=== PATIENT | male | born 1940 | race Caucasian/White ===

== ENCOUNTER 2023-01-29 07:19 | Day surgery (SDC) | payer MEDICARE, SELFPAY ==
[2023-01-29 07:23] VITALS: BP 122/87; PULSE 65; RESP 18; TEMP 36.7; O2SAT 97
[2023-01-29] MEDS: Tropicam./Phenyleph. (1/2.5%) 5 ML BTL OD ×3 (07:41→07:49)
--- NOTE | 2023-01-29 08:26 | W.ANESPRE ---
General Info Date of Service Date Performed: 01/29/23 Height: 5 ft 9 in Weight: 81.7 kg Body Mass Index (BMI): 26.6 Surgical Procedure: Operation Date: 01/29/23 09:40 Proposed Procedure Side Surgeon p Cataract Extraction with IOL Implant Right Bony Franz MD Meds Allergies and Home Medications Allergies Allergy/AdvReac Type Severity Reaction Status Date / Time No Known Allergies Allergy Unverified 01/29/23 07:32 Home Medication Medication Instructions Recorded calcium carbonate 600 mg-vitamin 1 tab PO DAILY 01/28/23 D3 5 mcg (200 unit) tablet multivitamin 1 tab PO DAILY 01/28/23 vit C 250 mg-vit E 90 mg-zinc 40 1 cap PO DAILY 01/28/23 mg-copper 1 [id number]-[id number] capsule (PreserVision AREDS-2) Current Visit Medications: Current Medications Generic Name Dose Route Start Last Admin Trade Name Freq PRN Reason Stop Dose Admin Acetaminophen 1,000 mg 01/29/23 06:00 Acetaminophen 500 Mg Tab PO Q4H PRN PRN Miscellaneous Medication 0 ml 01/29/23 06:00 01/29/23 07:49 Tropicam./Phenyleph. 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 cataract, right eye H25.11 Excessive cerumen in ear canal 12/16/15 H61.20 Sensorineural hearing loss, asymmetrical 01/22/14 H90.5 Sensorineural hearing loss 10/08/15 H90.5 Sensorineural hearing loss, bilateral 12/16/15 H90.3 Abnormal auditory perception H93.299 Medical History Medical History Cataract Tobacco Smoking/Tobacco Use Status: Current-Occasional Tobacco Type: cigarettes Alcohol Alcohol Intake: never Substance Use Substance use type: does not use Vital Signs and Lab Results Vital Signs Most Recent Vital Signs in EMR: Most Recent Vital Signs Temp Pulse Resp BP Pulse Ox 36.7 C 65 18 122/87 97 01/29/23 07:23 01/29/23 07:23 01/29/23 07:23 01/29/23 07:23 01/29/23 07:23 Lab Results Blood Type / Crossmatch: No Data to Display Complete Blood Count: No Data to Display Complete Metabolic Panel: No Data to Display Liver Function Panel: No Data to Display Coagulation Panel: No Data to Display Cardiac Panel: No Data to Display Arterial Blood Gas: No Data to Display Venous Blood Gas: No Data to Display Pancreas Panel: No Data to Display Thyroid Panel: No Data to Display Infectious Disease: No Data to Display Blood Cultures: No Data to Display Toxicology Panel: No Data to Display Anesthesia Assessment and Plan Anesthesia History Personal History: No History of Anesthesia Complications Family History: No Family History of Anesthesia Complications Exercise Tolerance Exercise Tolerance: Metabolic Equivalents>4 Pertinent Negatives Pertinent Negatives: No Symptoms of GERD, No Major Cardiovascular Symptoms or Complaints and No Major Pulmonary Symptoms or Complaints Cardiac & Pulmonary Exam Cardiac Exam: Normal S1/S2 Heart Sounds Pulmonary Exam: Clear Bilateral Breath Sounds Implantable Cardiac Device Does patient have a Pacemaker or an ICD?: No Airway Exam Known Difficult Airway: No Mallampati Class: 2 Mouth Opening: Normal (> 3cm) Thyromental Distance: Greater than 3 cm Neck Range of Motion: Full ROM Neck Circumference: Normal Teeth Condition: Removable Dentures/Plates Upper ASA Classification ASA Score: ASA 2 Emergency Case?: No NPO Status NPO Status: NPO Clears >2 hours, Solids >8 hours Anesthesia Plan Resuscitation Status: Full Code Anesthesia Technique: MAC Anesthesia Airway Planned: Natural Airway Monitors Used: Standard Monitors
[2023-01-29 08:28] VITALS: BMI 26.6
[2023-01-29] MEDS: Tetracaine 0.5% 4 ML BTL OD (09:32)
[2023-01-29] MEDS: Balanced Salt Soln.-PLUS 500 ML BAG (09:33)
[2023-01-29] MEDS: Duovisc Viscoelastic System EACH 1 EACH (09:33)
[2023-01-29] MEDS: Lidocaine 1% Pres-Free 5 ML VIAL (09:33)
[2023-01-29] MEDS: Phenylephrine/Lidocaine (15/10) MG/ML 1 ML VIAL (09:34)
[2023-01-29] MEDS: Povidone-Iodine Ophth 30 ML BTL (09:37)
[2023-01-29 09:45] VITALS: BP 110/66; PULSE 53; RESP 17; TEMP 36.5; O2SAT 99
--- NOTE | 2023-01-29 09:46 | W.PM.DSUDISC ---
Date of service: 01/29/23 Time of Service: 09:46 Discharge Plan Disposition Patient Disposition: Home Discharge Details Attending Provider: Bony Franz Primary Care Provider: Jerod Nina Home Meds and New Rx's Prescriptions: No Action multivitamin Tablet 1 tab PO DAILY calcium carbonate-vitamin D3 [Calcium + D] 600 mg-5 mcg (200 unit) Tablet 1 tab PO DAILY PreserVision AREDS-2 250-90-40-1 mg Capsule 1 cap PO DAILY Discharge Instructions Stand Alone Forms: Post-op Topical Cataract, Raj Squires (DSU) Discharge Orders Discharge Orders: Discharge Order (Routine); Ordered 01/29/23 Ordered By: Bony Franz DS: Diagnosis Discharge Diagnosis (1) Cortical cataract of right eye: Status: Resolved (2) Nuclear age-related cataract, right eye: Status: Resolved
--- NOTE | 2023-01-29 09:46 | W.PM.OP ---
Date of service: 01/29/23 Time of Service: 09:46 Operative Note Operative Note DATE OF PROCEDURE: 01/29/23 PRE-OP DIAGNOSIS: Nuclear/cortical cataract, right eye POST-OP DIAGNOSIS: same PROCEDURE: Cataract extraction using phacoemulsification with intraocular lens implant, right eye SURGEON: Bony Franz ANESTHESIA TYPE: Local By Surgeon and MAC Refer to Anesthesia Record ESTIMATED BLOOD LOSS: 0 PATHOLOGY: none sent COMPLICATIONS: None Patient was transported to: same day Patient's condition: stable Implants: Pacheco [employer] [id number] Indications: Progressive decreased vision due to cataract, right eye Procedure Description: CATARACT SURGERY OPERATIVE REPORT PREOPERATIVE DIAGNOSIS: Nuclear/cortical cataract, right eye POSTOPERATIVE DIAGNOSIS: Same OPERATION: Cataract extraction using phacoemulsification with posterior chamber intraocular lens implant, right eye. IOL: IOL [employer] Logger/Model: Pacheco [place] [id number] IOL Power: + 19.0 diopters IOL Serial Number: [id number] Optic Diameter: 6.0mm Haptic/Overall Diameter: 13.0mm PHACO INFO: Pacheco[employer]eg[employer]urion Vision System with OZil and Active Fluidics Cumulative Dispersed Energy (CDE): 12.74 seconds SURGEON: Bony Franz MD, AURY ANESTHESIA: Monitored Anesthesia Care (MAC), with local sub-tenon's anesthetic infiltration COMPLICATIONS: None SPECIMENS: None INDICATIONS FOR PROCEDURE: The patient is an 82-year-old male with history of diminished visual acuity in his right eye secondary to the development of significant nuclear/cortical cataract in the right eye. The option of cataract surgery was offered to the patient and he wished to proceed. PROCEDURE: The correct surgical eye was identified and marked as the right eye and the pupil was dilated in the preoperative area using mydriatics and cycloplegics. The dilated pupil size was 6.0 mm. Oral sedation was administered in the form of one half of an Imprimis MKO Melt (midazolam 3mg/ketamine 25mg/ondansetron 2mg). The patient was brought to the operating room where cardiopulmonary monitoring was instituted and surgical time-out was performed, confirming the correct operative eye and IOL power. Topical anesthesia was administered and ophthalmic povidone-iodine 5% was instilled into the conjunctival fornices. Lidocaine gel was applied to the cornea and the jaja-ocular area was prepped with Betadine 10% solution and draped in the usual sterile fashion for intraocular surgery, including an aperture drape. A Tegaderm transparent film dressing was cut in half and used to cover the lashes and lid margins. Care was taken to sequester the lashes and lid margins under the Tegaderm dressing. A lid speculum was placed between the lids of the operative eye and the [employer] operating microscope was maneuvered into position. Gibran scissors were then used to make a conjunctival buttonhole approximately 6mm posterior to the limbus in the inferonasal quadrant. Blunt dissection was carried out to expose bare sclera, and a blunt-tipped sub-tenon?s anesthesia cannula was introduced and passed posteriorly along the globe where non-preserved plain lidocaine was injected into posterior sub-Tenon?s space. A sideport knife was used to make a paracentesis port inferiortemporally. Intraocular phenylephrine/lidocaine was injected into the anterior chamber. The anterior chamber was then filled with viscoelastic. A keratome knife was used to construct a two--plane near-clear corneal tunnel extending 2.0mm into clear cornea in the superiortemporal position.. A flap was raised on the anterior capsule and capsulorhexis forceps were used to complete a continuous curvilinear capsulorhexis of 5.0 mm. Balanced salt solution was then used to perform cortical cleaving hydrodissection and nuclear hydrodelineation until the lens could be freely rotated within the capsular bag. The lens nucleus was then disassembled and removed within the capsular bag and iris plane using phacoemulsification. Residual cortical material was removed using the I/A handpiece. The posterior capsule was carefully polished to remove as much residual lens epithelial cells as safely possible. The capsular bag was then inflated and the anterior chamber deepened with viscoelastic. The lens implant described above was inserted into the capsular bag using the Pacheco Autonome Injector. A Kuglen hook was used to dial the IOL into position. Residual viscoelastic was then removed first from posterior to the IOL, then from the anterior chamber using the I/A handpiece. The lens implant was noted to center nicely within the capsular bag. The incisions were stromally hydrated, and the anterior chamber was reformed using BSS. Then 0.5cc of moxifloxacin 1.0mg/ml were injected into the capsular bag and anterior chamber. The incisions were checked with a Weck spear and found to be secure. Several drops of ophthalmic povidone-iodine 5% were then applied to the eye followed by two drops of Imprimis combination prednisolone/moxifloxacin/nepafenac solution. The drapes were removed and a clear plastic protective eye shield was placed over the eye. The patient was then returned to Same Day Surgery in stable condition.
--- NOTE | 2023-01-29 10:16 | W.ANESPOSTOP ---
Postoperative Evaluation Date, Time and Location Date Performed: 01/29/23 Time Performed: 09:53 Patient Location: Day Surgery Unit Vital Signs Most Recent Imported Vital Signs: Most Recent Vital Signs Temp Pulse Resp BP Pulse Ox 36.5 C 53 L 17 110/66 99 01/29/23 09:45 01/29/23 09:45 01/29/23 09:45 01/29/23 09:45 01/29/23 09:45 Pain Score Most Recent Pain Score: Most Recent Pain Score Pain Level 0 01/29/23 09:45 Assessment Mental Status: Awake (Alert & Oriented to Patient Baseline) Airway and Respiratory Function: Patent airway with normal (patient baseline) respiratory exam Cardiovascular Function: Hemodynamically Stable Hydration Status: Adequately Hydrated Nausea & Vomiting: No Nausea or Vomiting Pain: Pt. Denies Any Pain Peripheral Nerve Block: Patient did not receive a nerve block
[2023-01-29 10:20] VITALS: BP 116/65; PULSE 61; RESP 17; TEMP 36.4; O2SAT 100
== END 2023-01-29 10:30 | disposition home or self-care (01) ==
PROVIDERS: PCP Internal Medicine; Visit Provider Ophthalmology
PROC: (CPT 66984; principal; 2023-01-29 09:30)
DX: H25.11 Age-related nuclear cataract, right eye (principal)
CPT/HCPCS: 66984; V2632

== ENCOUNTER 2023-02-05 06:15 | Day surgery (SDC) | payer MEDICARE, SELFPAY ==
[2023-02-05 06:28] VITALS: BP 112/70; PULSE 57; RESP 16; TEMP 36.5; O2SAT 99
[2023-02-05] MEDS: Tropicam./Phenyleph. (1/2.5%) 5 ML BTL OS ×3 (06:38→06:48)
[2023-02-05 07:03] VITALS: BMI 26.9
--- NOTE | 2023-02-05 07:03 | W.ANESPRE ---
General Info Date of Service Date Performed: 02/05/23 Height: 5 ft 9 in Weight: 82.7 kg Body Mass Index (BMI): 26.9 Surgical Procedure: Operation Date: 02/05/23 07:40 Proposed Procedure Side Surgeon p Cataract Extraction with IOL Implant Left Bony Franz MD Meds Allergies and Home Medications Allergies Allergy/AdvReac Type Severity Reaction Status Date / Time No Known Allergies Allergy Verified 02/05/23 06:27 Home Medication Medication Instructions Recorded calcium carbonate 600 mg-vitamin 1 tab PO DAILY 01/28/23 D3 5 mcg (200 unit) tablet multivitamin 1 tab PO DAILY 01/28/23 vit C 250 mg-vit E 90 mg-zinc 40 1 cap PO DAILY 01/28/23 mg-copper 1 [id number] capsule (PreserVision AREDS-2) Current Visit Medications: Current Medications Generic Name Dose Route Start Last Admin Trade Name Freq PRN Reason Stop Dose Admin Acetaminophen 1,000 mg 02/05/23 06:00 Acetaminophen 500 Mg Tab PO Q4H PRN PRN Miscellaneous Medication 0 ml 02/05/23 06:00 02/05/23 06:48 Tropicam./Phenyleph. (1/2.5%) 5 Ml Btl OS 1 drp DIRECTED OBI Administration Miscellaneous Medication 0 ml 02/05/23 06:00 Prednisolone 1%, Moxifloxacin 0.5%, Nepafenac 0.1% 5ml Btl OS DIRECTED OBI Tetracaine HCl 0 ml 02/05/23 06:00 Tetracaine 0.5% 4 Ml Btl OS DIRECTED OBI PFSH Active Problems Active Problems: Problem Status Onset Code Cortical cataract of right eye H26.9 Nuclear age-related cataract, right eye H25.11 Excessive cerumen in ear canal 12/16/15 H61.20 Sensorineural hearing loss, asymmetrical 01/22/14 H90.5 Sensorineural hearing loss 10/08/15 H90.5 Sensorineural hearing loss, bilateral 12/16/15 H90.3 Abnormal auditory perception H93.299 Medical History Medical History Cataract Tobacco Smoking/Tobacco Use Status: Current-Occasional Tobacco Type: cigarettes Alcohol Alcohol Intake: never Substance Use Substance use type: does not use Vital Signs and Lab Results Vital Signs Most Recent Vital Signs in EMR: Most Recent Vital Signs Temp Pulse Resp BP Pulse Ox 36.5 C 57 L 16 112/70 99 02/05/23 06:28 02/05/23 06:28 02/05/23 06:28 02/05/23 06:28 02/05/23 06:28 Lab Results Blood Type / Crossmatch: No Data to Display Complete Blood Count: No Data to Display Complete Metabolic Panel: No Data to Display Liver Function Panel: No Data to Display Coagulation Panel: No Data to Display Cardiac Panel: No Data to Display Arterial Blood Gas: No Data to Display Venous Blood Gas: No Data to Display Pancreas Panel: No Data to Display Thyroid Panel: No Data to Display Infectious Disease: No Data to Display Blood Cultures: No Data to Display Toxicology Panel: No Data to Display Anesthesia Assessment and Plan Anesthesia History Personal History: No History of Anesthesia Complications Family History: No Family History of Anesthesia Complications Exercise Tolerance Exercise Tolerance: Metabolic Equivalents>4 Cardiac & Pulmonary Exam Cardiac Exam: Normal S1/S2 Heart Sounds Pulmonary Exam: Clear Bilateral Breath Sounds Implantable Cardiac Device Does patient have a Pacemaker or an ICD?: No Airway Exam Known Difficult Airway: No Mallampati Class: 2 Mouth Opening: Normal (> 3cm) Thyromental Distance: Greater than 3 cm Neck Range of Motion: Full ROM Neck Circumference: Normal Teeth Condition: Removable Dentures/Plates Upper ASA Classification ASA Score: ASA 2 Emergency Case?: No NPO Status NPO Status: NPO Clears >2 hours, Solids >8 hours Anesthesia Plan Resuscitation Status: Full Code Anesthesia Technique: MAC Anesthesia Airway Planned: Natural Airway Monitors Used: Standard Monitors
[2023-02-05] MEDS: Balanced Salt Soln.-PLUS 500 ML BAG (07:38)
[2023-02-05] MEDS: Lidocaine 1% Pres-Free 5 ML VIAL (07:38)
[2023-02-05] MEDS: Phenylephrine/Lidocaine (15/10) MG/ML 1 ML VIAL (07:39)
[2023-02-05] MEDS: Povidone-Iodine Ophth 30 ML BTL (07:39)
[2023-02-05] MEDS: Duovisc Viscoelastic System EACH 1 EACH (07:40)
[2023-02-05] MEDS: Tetracaine 0.5% 4 ML BTL OS (07:41)
[2023-02-05 08:05] VITALS: BP 109/70; PULSE 60; RESP 16; TEMP 36.7; O2SAT 95
--- NOTE | 2023-02-05 08:10 | W.PM.DSUDISC ---
Date of service: 02/05/23 Time of Service: 08:10 Discharge Plan Disposition Patient Disposition: Home Discharge Details Attending Provider: Bony Franz Primary Care Provider: Jerod Nina Home Meds and New Rx's Prescriptions: No Action multivitamin Tablet 1 tab PO DAILY calcium carbonate-vitamin D3 [Calcium + D] 600 mg-5 mcg (200 unit) Tablet 1 tab PO DAILY PreserVision AREDS-2 250-90-40-1 mg Capsule 1 cap PO DAILY Discharge Instructions Stand Alone Forms: Post-op Topical Cataract, Raj Squires (DSU) Discharge Orders Discharge Orders: Discharge Order (Routine); Ordered 02/05/23 Ordered By: Bony Franz DS: Diagnosis Discharge Diagnosis (1) Nuclear age-related cataract, left eye: Status: Resolved (2) Cortical cataract of left eye: Status: Resolved
--- NOTE | 2023-02-05 08:11 | W.PM.OP ---
Date of service: 02/05/23 Time of Service: 08:12 Operative Note Operative Note DATE OF PROCEDURE: 02/05/23 PRE-OP DIAGNOSIS: Nuclear/cortical cataracts, left eye POST-OP DIAGNOSIS: same PROCEDURE: Cataract extraction using phacoemulsification with intraocular lens implant, left eye SURGEON: Bony Franz ANESTHESIA TYPE: Local By Surgeon and MAC Refer to Anesthesia Record PATHOLOGY: none sent COMPLICATIONS: None Patient was transported to: same day Patient's condition: stable Implants: Pacheco [place] [id number] Indications: Progressive decreased vision due to cataract, left eye Procedure Description: CATARACT SURGERY OPERATIVE REPORT PREOPERATIVE DIAGNOSIS: Nuclear/cortical cataract, left eye POSTOPERATIVE DIAGNOSIS: Same OPERATION: Cataract extraction using phacoemulsification with posterior chamber intraocular lens implant, left eye. IOL: IOL Hunter Guide/Model: Pacheco [place] [id number] IOL Power: + 19.0 diopters IOL Serial Number: [id number] Optic Diameter: 6.0mm Haptic/Overall Diameter: 13.0mm PHACO INFO: [employer]ion Vision System with OZil and Active Fluidics Cumulative Dispersed Energy (CDE): 14.68 seconds SURGEON: Bony Franz MD, AURY ANESTHESIA: Monitored Anesthesia Care (MAC), with local sub-tenon's anesthetic infiltration COMPLICATIONS: None SPECIMENS: None INDICATIONS FOR PROCEDURE: The patient is a 82-year-old gentleman with history of diminished visual acuity in both eyes secondary to the development of bilateral nuclear/cortical cataract. He has already undergone cataract surgery in the right eye and is doing well postoperatively. He now presents for cataract surgery in the left eye. PROCEDURE: The correct surgical eye was identified and marked as the left eye and the pupil was dilated in the preoperative area using mydriatics and cycloplegics. The dilated pupil size was 7.0 mm. Oral sedation was administered in the form of an Imprimis MKO Melt (midazolam 3mg/ketamine 25mg/ondansetron 2mg). The patient was brought to the operating room where cardiopulmonary monitoring was instituted and surgical time-out was performed, confirming the correct operative eye and IOL power. Topical anesthesia was administered and ophthalmic povidone-iodine 5% was instilled into the conjunctival fornices. Lidocaine gel was applied to the cornea and the jaja-ocular area was prepped with Betadine 10% solution and draped in the usual sterile fashion for intraocular surgery, including an aperture drape. A Tegaderm transparent film dressing was cut in half and used to cover the lashes and lid margins. Care was taken to sequester the lashes and lid margins under the Tegaderm dressing. The patient had a severe blepharospasm/blink reflex, making draping extremely challenging. A lid speculum was placed between the lids of the operative eye and the P[employer] operating microscope was maneuvered into position. Gibran scissors were then used to make a conjunctival buttonhole approximately 6mm posterior to the limbus in the inferonasal quadrant. Blunt dissection was carried out to expose bare sclera, and a blunt-tipped sub-tenon?s anesthesia cannula was introduced and passed posteriorly along the globe where non-preserved plain lidocaine was injected into posterior sub-Tenon?s space. A sideport knife was used to make a paracentesis port superior/superiortemporally. Intraocular phenylephrine/lidocaine was injected into the anterior chamber. The anterior chamber was then filled with viscoelastic. A keratome knife was used construct a two-plane near-clear corneal tunnel extending 2.0mm into clear cornea in the temporal position. . A flap was raised on the anterior capsule and capsulorhexis forceps were used to complete a continuous curvilinear capsulorhexis of 5.0 mm. Balanced salt solution was then used to perform cortical cleaving hydrodissection and nuclear hydrodelineation until the lens could be freely rotated within the capsular bag. The lens nucleus was then disassembled and removed within the capsular bag and iris plane using phacoemulsification. Residual cortical material was removed using the 45-degree angled silicone I/A tip with 0.3mm port. The posterior capsule was carefully polished to remove as much residual lens epithelial cells as safely possible. The capsular bag was then inflated and the anterior chamber deepened with viscoelastic. The lens implant described above was inserted into the capsular bag using the Pacheco Autonome Injector. A Kuglen hook was used to dial the IOL into position. Residual viscoelastic was then removed first from posterior to the IOL, then from the anterior chamber using the I/A handpiece. The lens implant was noted to center nicely within the capsular bag. The incisions were stromally hydrated, and the anterior chamber was reformed using BSS. Then 0.5cc of moxifloxacin 1.0mg/ml were injected into the capsular bag and anterior chamber. The incisions were checked with a Weck spear and found to be secure. Several drops of ophthalmic povidone-iodine 5% were then applied to the eye followed by two drops of Imprimis combination prednisolone/moxifloxacin/nepafenac solution. The drapes were removed and a clear plastic protective eye shield was placed over the eye. The patient was then returned to Same Day Surgery in stable condition.
--- NOTE | 2023-02-05 08:34 | W.ANESPOSTOP ---
Postoperative Evaluation Date, Time and Location Date Performed: 02/05/23 Time Performed: 08:10 Patient Location: Day Surgery Unit Vital Signs Most Recent Imported Vital Signs: Most Recent Vital Signs Temp Pulse Resp BP Pulse Ox 36.7 C 60 16 109/70 95 02/05/23 08:05 02/05/23 08:05 02/05/23 08:05 02/05/23 08:05 02/05/23 08:05 Pain Score Most Recent Pain Score: Most Recent Pain Score Pain Level 0 02/05/23 08:05 Assessment Mental Status: Arousable with meaningful communication Airway and Respiratory Function: Patent airway with normal (patient baseline) respiratory exam Cardiovascular Function: Hemodynamically Stable Hydration Status: Adequately Hydrated Nausea & Vomiting: No Nausea or Vomiting Pain: Pt. Denies Any Pain Peripheral Nerve Block: Patient did not receive a nerve block
[2023-02-05 08:36] VITALS: BP 111/61; PULSE 51; RESP 16; TEMP 36.6; O2SAT 97
== END 2023-02-05 08:42 | disposition home or self-care (01) ==
LOC: SUR 06:15
PROVIDERS: PCP Internal Medicine; Visit Provider Ophthalmology
PROC: (CPT 66984; principal; 2023-02-05 07:30)
DX: H25.12 Age-related nuclear cataract, left eye (principal); Z98.41 Cataract extraction status, right eye
CPT/HCPCS: 66984; V2632

== ENCOUNTER → 2024-02-10 13:29 | Outpatient (BNVA) | payer MEDICARE, SELFPAY | PROVIDERS: PCP Family Medicine; Referring Provider Family Medicine; Visit Provider Nurse Practitioner Gerontology | DX: N32.89 Other specified disorders of bladder (principal); R31.9 Hematuria, unspecified; N40.1 Benign prostatic hyperplasia with lower urinary tract symptoms; R39.12 Poor urinary stream | CPT/HCPCS: 81003; 99204 ==

== ENCOUNTER 2024-02-10 14:23 | Outpatient (REF) | payer MEDICARE, SELFPAY | END 2024-02-10 14:24 | disposition home or self-care (01) | LOC: LBN 14:23 | PROVIDERS: PCP Family Medicine; Visit Provider Nurse Practitioner Gerontology | DX: R31.9 Hematuria, unspecified (principal); N32.89 Other specified disorders of bladder | CPT/HCPCS: 87086 ==

== ENCOUNTER 2024-02-28 07:03 | Day surgery (SDC) | payer MEDICARE, SELFPAY ==
[2024-02-28] VITALS (8 sets, daily range): BP systolic 89–117; BP diastolic 50–72; PULSE 48–51; RESP 15–19; TEMP 36.3–36.5; O2SAT 93–97; BMI 27.7
--- NOTE | 2024-02-28 07:53 | W.ANESPRE ---
General Info Date of Service Date Performed: 02/28/24 Height: 5 ft 7 in Weight: 80.4 kg Body Mass Index (BMI): 27.7 Surgical Procedure: Operation Date: 02/28/24 08:55 Proposed Procedure Side Surgeon p Cystoscopy/Transurethral Resection Bladder Tumor Flakito Vickers MD Pre-Op Diagnosis Post-Op Diagnosis Bladder Mass Bladder Mass Meds Allergies and Home Medications Allergies Allergy/AdvReac Type Severity Reaction Status Date / Time No Known Allergies Allergy Verified 02/28/24 07:36 Home Medication Medication Instructions Recorded calcium carbonate 600 mg-vitamin 1 tab PO DAILY 01/28/23 D3 5 mcg (200 unit) tablet multivitamin 1 tab PO DAILY 01/28/23 vit C 250 mg-vit E 90 mg-zinc 40 1 cap PO DAILY 01/28/23 mg-copper 1 [id number] capsule (PreserVision AREDS-2) tamsulosin 0.4 mg capsule 0.4 mg PO DAILY #90 caps 02/10/24 Current Visit Medications: Current Medications Generic Name Dose Route Start Last Admin Trade Name Freq PRN Reason Stop Dose Admin Ringer's Solution 1,000 mls @ 80 mls/hr 02/28/24 06:00 IV 03/26/24 23:59 INFUSION OBI Cefazolin Sodium/Dextrose 2 gm in 50 mls @ 100 mls/hr 02/28/24 06:00 Ancef Duplex IVPB 03/26/24 23:59 PREOP OBI IV Miscellaneous Supplies 1 each 02/28/24 06:00 Iv Access IV 03/26/24 23:59 DIRECTED OBI Sodium Chloride 0 ml 02/28/24 06:00 Normal Saline Flush 10 Ml Syr IV 03/26/24 23:59 PRN PRN Sodium Chloride 0 ml 02/28/24 06:00 Normal Saline 10 Ml Vial IJ 03/26/24 23:59 DIRECTED PRN Sterile Water 0 ml 02/28/24 06:00 Water,Injection,Sterile 10 Ml Vial IJ 03/26/24 23:59 DIRECTED PRN PFSH Active Problems Active Problems: Problem Status Onset Code Bladder mass N32.89 Bilateral hearing loss due to cerumen impaction H61.23 Wears hearing aid in both ears Z97.4 Cortical cataract of left eye H26.9 Nuclear age-related cataract, left eye H25.12 Cortical cataract of right eye H26.9 Nuclear age-related cataract, right eye H25.11 Excessive cerumen in ear canal 12/16/15 H61.20 Sensorineural hearing loss, asymmetrical 01/22/14 H90.5 Sensorineural hearing loss 10/08/15 H90.5 Sensorineural hearing loss, bilateral 12/16/15 H90.3 Abnormal auditory perception H93.299 Medical History Medical History (Updated 02/28/24 @ 07:37 by Yeimy De Los Santos) Obstructive sleep apnea Surgical History Surgical History (Updated 02/28/24 @ 07:37 by Yeimy De Los Santos) Cataract Tobacco Smoking/Tobacco Use Status: Current-Occasional Tobacco Type: cigarettes and pipe Alcohol Alcohol Intake: never Substance Use Substance use type: does not use Vital Signs and Lab Results Vital Signs Most Recent Vital Signs in EMR: Most Recent Vital Signs Temp Pulse Resp BP Pulse Ox 36.5 C 50 L 18 117/72 97 02/28/24 07:15 02/28/24 07:15 02/28/24 07:15 02/28/24 07:15 02/28/24 07:15 Lab Results Blood Type / Crossmatch: No Data to Display Complete Blood Count: No Data to Display Complete Metabolic Panel: No Data to Display Liver Function Panel: No Data to Display Coagulation Panel: No Data to Display Cardiac Panel: No Data to Display Arterial Blood Gas: No Data to Display Venous Blood Gas: No Data to Display Pancreas Panel: No Data to Display Thyroid Panel: No Data to Display Infectious Disease: No Data to Display Blood Cultures: No Data to Display Toxicology Panel: No Data to Display Anesthesia Assessment and Plan Anesthesia History Personal History: No History of Anesthesia Complications Family History: No Family History of Anesthesia Complications Exercise Tolerance Exercise Tolerance: Metabolic Equivalents>4 Pertinent Negatives Pertinent Negatives: No Symptoms of GERD Cardiac & Pulmonary Exam Cardiac Exam: Normal S1/S2 Heart Sounds Pulmonary Exam: Clear Bilateral Breath Sounds Implantable Cardiac Device Does patient have a Pacemaker or an ICD?: No Airway Exam Known Difficult Airway: No Mallampati Class: 2 Mouth Opening: Normal (> 3cm) Thyromental Distance: Greater than 3 cm Neck Range of Motion: Full ROM Neck Circumference: Normal Teeth Condition: Removable Dentures/Plates Upper ASA Classification ASA Score: ASA 2 Emergency Case?: No NPO Status NPO Status: NPO Clears >2 hours, Solids >8 hours Anesthesia Plan Resuscitation Status: Full Code Anesthesia Technique: General Anesthesia Airway Planned: Endotracheal Tube Monitors Used: Standard Monitors and SedLine
[2024-02-28] MEDS: Lactated Ringers 1,000 ML 80 ML IV (07:58)
--- NOTE | 2024-02-28 08:35 | W.PM.HP.N ---
Date of service: 02/28/24 Time of Service: 08:35 Assessment and Plan Assessment and plan (1) Bladder mass: Status: Acute Assessment and plan: We will perform cystoscopy and transurethral resection of any visible bladder mass. We have made arrangements for admission for bladder irrigation postoperatively if need be. History of Present Illness History of Present Illness Chief Complaint: Bladder mass Narrative: Pedrito is an 83-year-old male referred to urology by his PCP for a bladder mass found on imaging. He reports that he was having some blood on his underwear and even with his voids more recently that led him to his PCP office. He is also been having some slow and weak stream concerns. He has no episodes of clots or retention. Review of Systems Narrative: No fevers or chills Hx cataracts. Decreased hearing acuity. No dysphasia No diabetes or thyroid dysfunction Sleep apnea. No cough or hemoptysis No chest pain or palpitations No nausea, vomiting, hepatitis, ulcers, jaundice No seizures, strokes or peripheral neuropathy No bleeding disorders or anemia No gout PFSH All Active Problems (Updated 02/28/24 @ 07:37 by Yeimy De Los Santos) Bladder mass (Acute) Bilateral hearing loss due to cerumen impaction (Acute) Wears hearing aid in both ears (Acute) Excessive cerumen in ear canal (Acute 12/16/15) Sensorineural hearing loss, asymmetrical (Acute 01/22/14) Sensorineural hearing loss (Acute 10/08/15) Sensorineural hearing loss, bilateral (Acute 12/16/15) Abnormal auditory perception (Acute) Medical History (Updated 02/28/24 @ 07:37 by Yeimy De Los Santos) Obstructive sleep apnea Surgical History (Updated 02/28/24 @ 07:37 by Yeimy De Los Santos) Cataract Social History Smoking/Tobacco Use Status: Current-Occasional Tobacco Type: cigarettes and pipe Smoking risk assessment performed?: Yes Alcohol Intake: never Substance use type: does not use Housing: house Do you feel safe at home: Yes Do you feel safe in your relationship?: Yes Meds Allergies and Home Medications Allergies Allergy/AdvReac Type Severity Reaction Status Date / Time No Known Allergies Allergy Verified 02/28/24 07:36 Home Medications Medication Instructions Recorded Confirmed Type calcium carbonate 600 mg-vitamin 1 tab PO DAILY 01/28/23 02/28/24 History D3 5 mcg (200 unit) tablet multivitamin 1 tab PO DAILY 01/28/23 02/28/24 History vit C 250 mg-vit E 90 mg-zinc 40 1 cap PO DAILY 01/28/23 02/28/24 History mg-copper 1 dj-rnyiys-[id number] capsule (PreserVision AREDS-2) tamsulosin 0.4 mg capsule 0.4 mg PO DAILY #90 caps 02/10/24 02/28/24 Rx Exam Const General: cooperative and comfortable Neck Neck: supple Resp Effort & Inspection: normal respiratory effort Auscultation: clear to auscultation bilaterally Cardio Rate: regular rate Rhythm: regular rhythm GI Palpation: soft and no masses Neuro General: patient alert, patient awake and patient oriented x3 Results Last Vital Signs Temp 36.5 C 02/28/24 07:15 Pulse 50 L 02/28/24 07:15 Resp 18 02/28/24 07:15 BP 117/72 02/28/24 07:15 Pulse Ox 97 02/28/24 07:15 Time Spent Time spent with Patient: <40 minutes Time was spent: other
[2024-02-28] MEDS: ceFAZolin 2 GM/50 ML BAG IVPB (08:55)
[2024-02-28] MEDS: Lidocaine 2% Jelly 6 ML SYR (09:18)
--- NOTE | 2024-02-28 09:25 | BLADDER_PTH ---
PATIENT: Pedrito Jaime LOC: [facility] U#:[id number] AGE/SX: 83/M ROOM: RE02/28/[address]: Flakito Vickers MD : 1940 BED: DIS: 02/28/2024 SPEC #: [id number] RECD: 02/28/24 12:43 STATUS: JACE REQ #: [id number] VAISHNAVI: 02/28/24 09:[address]: Flakito Vickers DEPT: Surgical Specimen RECD BY: Soni Donald ENTERED: 02/28/24 12:44 SP TYPE: Bladder OTHR DR: Bony Marquez Tissues: 1 - BLADDER CURRETTINGS Procedures: GROSS AND MICRO LEVEL 5 Comments: [id number]
--- NOTE | 2024-02-28 09:39 | W.PM.DSUDISC ---
Date of service: 02/28/24 Time of Service: 09:40 Discharge Plan Disposition Patient Disposition: Home Discharge Details Attending Provider: Flakito Vickers Primary Care Provider: Bony Marquez Home Meds and New Rx's Prescriptions: No Action tamsulosin 0.4 mg capsule 0.4 mg PO DAILY Qty: 90 3RF multivitamin Tablet 1 tab PO DAILY calcium carbonate-vitamin D3 [Calcium + D] 600 mg-5 mcg (200 unit) Tablet 1 tab PO DAILY PreserVision AREDS-2 250-90-40-1 mg Capsule 1 cap PO DAILY Discharge Instructions Additional Instructions: rendon to drainage (large drainage bag or leg bag - pts choice) followup for catheter removal in 5 to 7 days followup for pathology results 2 weeks Activity:: no lifting over 10 pounds until catheter removal Shower/Bathe:: 24 hours Diet:: As Tolerated Discharge Orders Discharge Orders: Discharge Order (Routine); Ordered 02/28/24 Ordered By: Flakito Vickers DS: Diagnosis Discharge Diagnosis (1) Bladder mass: Status: Acute
--- NOTE | 2024-02-28 09:43 | W.PM.OP ---
Date of service: 02/28/24 Time of Service: 09:43 Operative Note Operative Note DATE OF PROCEDURE: 02/28/24 PRE-OP DIAGNOSIS: Bladder mass POST-OP DIAGNOSIS: same PROCEDURE: cystoscopy, TUR Bladder Tumor (>5 cm) SURGEON: Flakito Vickers ANESTHESIA TYPE: Local By Surgeon and General LMA/ETT Refer to Anesthesia Record ESTIMATED BLOOD LOSS: 5 PATHOLOGY: other (Bladder tumors) Implants: 20 Kittitian rendon with 10 cc sterile water in balloon Indications: This is an 83-year-old gentleman who has a history of bloody discharge from the urethral meatus. He was initially evaluated with imaging studies and a left-sided bladder mass was identified. He presents now for transurethral resection of a presumed bladder tumor Findings: Large papillary lesion left side of bladder behind ureteral orifice Small papillary lesion behinf right ureteral orifice Procedure Description: The patient was given preoperative antibiotics and brought to the operating room on 02/28/2024. After successful induction of general anesthesia, he was placed in the dorsal lithotomy position. His genitalia was prepped and draped. 2% Xylocaine jelly was instilled into the urethra to act as a local anesthetic. A 22 Kittitian rigid cystoscope was then passed through the urethra into the bladder. The urethra and bladder were inspected with a 30 degree lens. The pendulous, bulbar and membranous urethra appeared normal with no strictures. The prostatic urethra showed some lateral lobe enlargement but no significant median lobe. Once the bladder neck was entered the bladder mucosa was inspected. We identified 2 separate papillary lesions of concern. A small less than 2 cm lesion was seen just behind the right ureteral orifice. A second larger (greater than 5 cm) papillary lesion was seen just behind the left ureteral orifice. On the larger lesion, some necrotic debris was identified. The remainder of the bladder was moderately to heavily trabeculated, but there were no additional bladder lesions identified. We then removed the cystoscope and passed a 24 Kittitian resectoscope sheath through the urethra into the bladder. We used an [employer] resectoscope and bipolar cautery to perform transurethral resection of both lesions. The resected tissue was evacuated and sent to pathology for permanent section. The base of the resected sites was then cauterized using the coagulation current. At the completion of the procedure, clear urine could be seen coming from each of the orifices. No active bleeding was identified, so it was felt that the patient would not require continuous bladder irrigation. We then filled his bladder with irrigant and passed a 20 Kittitian Rendon catheter through the urethra into the bladder. The catheter balloon was inflated with 10 cc of sterile water. The catheter was hooked to gravity drainage.
[2024-02-28] MEDS: Phenazopyridine 200 MG TAB PO (10:29)
[2024-02-28] MEDS: Oxybutynin 5 MG TAB PO (10:29)
--- NOTE | 2024-02-28 11:14 | W.ANESPOSTOP ---
Postoperative Evaluation Date, Time and Location Date Performed: 02/28/24 Time Performed: 11:14 Patient Location: Day Surgery Unit Vital Signs Most Recent Imported Vital Signs: Most Recent Vital Signs Temp Pulse Resp BP Pulse Ox 36.5 C 49 L 16 105/70 95 02/28/24 10:45 02/28/24 10:45 02/28/24 10:45 02/28/24 10:45 02/28/24 10:45 Pain Score Most Recent Pain Score: Most Recent Pain Score Pain Level 0 02/28/24 10:45 Assessment Mental Status: Awake (Alert & Oriented to Patient Baseline) Airway and Respiratory Function: Patent airway with normal (patient baseline) respiratory exam Cardiovascular Function: Hemodynamically Stable Hydration Status: Adequately Hydrated Nausea & Vomiting: No Nausea or Vomiting Pain: Pt. Denies Any Pain Peripheral Nerve Block: Patient did not receive a nerve block
== END 2024-02-28 11:45 | disposition home or self-care (01) ==
PROVIDERS: PCP Family Medicine; Visit Provider Urology
PROC: 0TBB8ZZ Excision of Bladder, Via Natural or Artificial Opening Endoscopic (ICD-10-PCS; CPT 52240; principal; 2024-02-28 08:45)
DX: C67.6 Malignant neoplasm of ureteric orifice (principal); R31.0 Gross hematuria
CPT/HCPCS: 52240; 87624; 88307; J0690; J1100; J2001; J2405; J2704; J3010

== ENCOUNTER → 2024-03-03 07:52 | Outpatient (BNVA) | payer MEDICARE, SELFPAY | PROVIDERS: PCP Family Medicine; Referring Provider Family Medicine; Visit Provider Urology | DX: Z48.816 Encounter for surgical aftercare following surgery on the genitourinary system (principal); N32.89 Other specified disorders of bladder ==

== ENCOUNTER → 2024-03-24 10:41 | Outpatient (BNVA) | payer MEDICARE, SELFPAY | PROVIDERS: PCP Family Medicine; Referring Provider Family Medicine; Visit Provider Urology | DX: C67.9 Malignant neoplasm of bladder, unspecified (principal) | CPT/HCPCS: 99214 ==

== ENCOUNTER → 2024-04-25 10:38 | Outpatient (BNVA) | payer MEDICARE, SELFPAY | PROVIDERS: PCP Family Medicine; Referring Provider Family Medicine; Visit Provider Urology | DX: C67.9 Malignant neoplasm of bladder, unspecified (principal) | CPT/HCPCS: 51720; 81003; J9201 ==

== ENCOUNTER → 2024-05-02 08:42 | Outpatient (BNVA) | payer MEDICARE, SELFPAY | PROVIDERS: PCP Family Medicine; Visit Provider Nurse Practitioner Gerontology | DX: C67.9 Malignant neoplasm of bladder, unspecified (principal) | CPT/HCPCS: 51720; 81003; J9201 ==

== ENCOUNTER → 2024-05-09 08:38 | Outpatient (BNVA) | payer MEDICARE, SELFPAY | PROVIDERS: PCP Family Medicine; Referring Provider Family Medicine; Visit Provider Urology | DX: C67.9 Malignant neoplasm of bladder, unspecified (principal) | CPT/HCPCS: 51720; 81003; J9201 ==

== ENCOUNTER → 2024-05-16 08:44 | Outpatient (BNVA) | payer MEDICARE, SELFPAY | PROVIDERS: PCP Family Medicine; Visit Provider Nurse Practitioner Gerontology | DX: C67.9 Malignant neoplasm of bladder, unspecified (principal) | CPT/HCPCS: 51720; 81003; J9201 ==

== ENCOUNTER → 2024-05-23 08:44 | Outpatient (BNVA) | payer MEDICARE, SELFPAY | PROVIDERS: PCP Family Medicine; Referring Provider Family Medicine; Visit Provider Nurse Practitioner Gerontology | DX: C67.9 Malignant neoplasm of bladder, unspecified (principal) | CPT/HCPCS: 51720; 81003; J9201 ==

== ENCOUNTER → 2024-05-30 08:44 | Outpatient (BNVA) | payer MEDICARE, SELFPAY | PROVIDERS: PCP Family Medicine; Referring Provider Family Medicine; Visit Provider Nurse Practitioner Gerontology | DX: C67.9 Malignant neoplasm of bladder, unspecified (principal) | CPT/HCPCS: 51720; 81003; J9201 ==

== ENCOUNTER → 2024-08-01 08:40 | Outpatient (BNVA) | payer MEDICARE, SELFPAY | PROVIDERS: PCP Family Medicine; Referring Provider Family Medicine; Visit Provider Urology | DX: C67.9 Malignant neoplasm of bladder, unspecified (principal) | CPT/HCPCS: 52000; 81003 ==

== ENCOUNTER 2024-08-01 09:26 | Outpatient (REF) | payer MEDICARE, SELFPAY ==
--- NOTE | 2024-08-01 08:50 | PAPNONF_PTH ---
PATIENT: Pedrito Jaime LOC: [facility] U#:[id number] AGE/SX: 83/M ROOM: RE08/01/[address]: Flakito Vickers MD : 1940 BED: DIS: 08/01/2024 SPEC #: [id number] RECD: 08/01/24 12:58 STATUS: JACE REQ #: [id number] VAISHNAVI: 08/01/24 08:[address]: Flakito Vickers DEPT: [facility] Cytology RECD BY: Soni Donald ENTERED: 08/01/24 12:59 SP TYPE: ELIUD IZAGUIRRE DR: Bony Marquez Tissues: 1 - BODY FLUID CYTO(SPUTUM/URINE)[facility] Procedures: BODY FLUID CYTO(URINE/SPUTUM) Comments: [id number] (TV = 40 ml, 30 ml CYTOLYT ADDED) (REFRIGERATED)
== END 2024-08-01 09:27 | disposition home or self-care (01) ==
LOC: LBN 09:26
PROVIDERS: PCP Family Medicine; Visit Provider Urology
DX: R82.89 Other abnormal findings on cytological and histological examination of urine (principal)
CPT/HCPCS: 88104

== ENCOUNTER → 2024-10-31 08:45 | Outpatient (BNVA) | payer MEDICARE, SELFPAY | PROVIDERS: PCP Family Medicine; Referring Provider Family Medicine; Visit Provider Urology | DX: C67.9 Malignant neoplasm of bladder, unspecified (principal) | CPT/HCPCS: 52000; 81003 ==

== ENCOUNTER → 2025-03-05 12:55 | Outpatient (BNVA) | payer MEDICARE, SELFPAY | PROVIDERS: PCP Family Medicine; Referring Provider Family Medicine; Visit Provider Urology | DX: C67.9 Malignant neoplasm of bladder, unspecified (principal); N32.89 Other specified disorders of bladder | CPT/HCPCS: 52000; 81003 ==

== ENCOUNTER 2025-03-05 13:19 | Outpatient (REF) | payer MEDICARE, SELFPAY ==
--- NOTE | 2025-03-05 13:10 | PAPNONF_PTH ---
PATIENT: Pedrito Jaime LOC: [facility] U#:[id number] AGE/SX: 84/M ROOM: RE03/05/[address]: Flakito Vickers MD : 1940 BED: DIS: 03/05/2025 SPEC #: [id number] RECD: 03/05/25 18:06 STATUS: MAIRAJovana REQ #: [id number] VAISHNAVI: 03/05/25 13:[address]: Flakito Vickers DEPT: [facility] Cytology RECD BY: Soni Donald ENTERED: 03/05/25 18:07 SP TYPE: ELIUD IZAGUIRRE DR: Bony Marquez Tissues: 1 - BODY FLUID CYTO(SPUTUM/URINE)[facility] Procedures: BODY FLUID CYTO(URINE/SPUTUM) Comments: [id number] (TV = 40 ml, 30 ml CYTOLYT ADDED) (REFRIGERATED)
== END 2025-03-05 13:20 | disposition home or self-care (01) ==
LOC: LBN 13:19
PROVIDERS: PCP Family Medicine; Visit Provider Urology
DX: C67.9 Malignant neoplasm of bladder, unspecified (principal)
CPT/HCPCS: 88104

== ENCOUNTER → 2025-09-04 12:30 | Outpatient (BNVA) | payer MEDICARE, SELFPAY | PROVIDERS: PCP Family Medicine; Referring Provider Family Medicine; Visit Provider Urology | DX: C67.9 Malignant neoplasm of bladder, unspecified (principal) | CPT/HCPCS: 81002; 52000 ==

== ENCOUNTER 2025-09-04 13:20 | Outpatient (REF) | payer MEDICARE, SELFPAY ==
--- NOTE | 2025-09-04 13:15 | PAPNONF_PTH ---
PATIENT: Pedrito Jaime LOC: [facility] U#:[id number] AGE/SX: 84/M ROOM: RE09/04/[address]: Flakito Vickers MD : 1940 BED: DIS: 09/04/2025 SPEC #: [id number] RECD: 09/04/25 16:11 STATUS: JACE REQ #: [id number] VAISHNAVI: 09/04/25 13:[address]: Flakito Vickers DEPT: [facility] Cytology RECD BY: Soni Donald ENTERED: 09/04/25 16:12 SP TYPE: ELIUD IZAGUIRRE DR: Bony Marquez Tissues: 1 - BODY FLUID CYTO(SPUTUM/URINE)[facility] Procedures: BODY FLUID CYTO(URINE/SPUTUM) Comments: [id number] (TOTAL VOLUME = 100 ml) (REFRIGERATED) (50 ml URINE & 30 ml CYTOLYT ADDED IN 2 CONTAINERS)
== END 2025-09-04 13:21 | disposition home or self-care (01) ==
LOC: LBN 13:20
PROVIDERS: PCP Family Medicine; Visit Provider Urology
DX: C67.9 Malignant neoplasm of bladder, unspecified (principal)
CPT/HCPCS: 88104

== ENCOUNTER 2025-09-10 07:06 | Day surgery (SDC) | payer MEDICARE, SELFPAY ==
[2025-09-10] VITALS (21 sets, daily range): BP systolic 88–116; BP diastolic 43–70; PULSE 44–58; RESP 11–21; TEMP 36.3–36.5; O2SAT 93–98; BMI 27.3
[2025-09-10] MEDS: Lactated Ringers 1,000 ML 80 ML IV (07:57)
--- NOTE | 2025-09-10 08:13 | W.ANESPRE ---
General Info Date of Service Date Performed: 09/10/25 Height: 5 ft 7 in Weight: 79.4 kg Body Mass Index (BMI): 27.3 Surgical Procedure: Operation Date: 09/10/25 09:10 Proposed Procedure Side Surgeon p Cystoscopy w/Transurethral Resection Bladder Tumor Flakito Vickers MD s Bladder Installation of Gemcitabine Flakito Vickers MD Meds Allergies and Home Medications Allergies Allergy/AdvReac Type Severity Reaction Status Date / Time No Known Allergies Allergy Verified 09/10/25 07:44 Home Medication Medication Instructions Recorded calcium 600 mg (as 1 tab PO DAILY 01/28/23 carbonate)-vitamin D3 5 mcg (200 unit) tablet multivitamin 1 tab PO DAILY 01/28/23 tamsulosin 0.4 mg capsule 0.4 mg PO DAILY #90 caps 02/08/25 meclizine 12.5 mg tablet 12.5 mg PO DIRECTED PRN Have 09/06/25 vertigo on occassion ropinirole 0.5 mg tablet 0.5 mg PO DAILY Restless Legs 09/06/25 Current Visit Medications: Current Medications Generic Name Dose Route Start Last Admin Trade Name Freq PRN Reason Stop Dose Admin Gemcitabine HCl 2 gm/ Sodium 0 gm 09/10/25 06:00 Chloride 50 ml BLADIN 09/10/25 23:59 DIRECTED OBI Ringer's Solution 1,000 mls @ 80 mls/hr 09/10/25 06:00 09/10/25 07:57 IV 09/10/25 23:59 80 mls/hr INFUSION OBI Administration Cefazolin Sodium/Dextrose 2 gm in 50 mls @ 100 mls/hr 09/10/25 06:00 Ancef Duplex IVPB 09/10/25 23:59 PREOP OBI IV Miscellaneous Supplies 1 each 09/10/25 06:00 Iv Access IV 09/10/25 23:59 DIRECTED OBI Sodium Chloride 0 ml 09/10/25 06:00 Normal Saline Flush 10 Ml Syr IV 09/10/25 23:59 PRN PRN Sodium Chloride 0 ml 09/10/25 06:00 Normal Saline 10 Ml Vial IJ 09/10/25 23:59 DIRECTED PRN Sterile Water 0 ml 09/10/25 06:00 Water,Injection,Sterile 10 Ml Vial IJ 09/10/25 23:59 DIRECTED PRN PFSH Active Problems Active Problems: Problem Status Onset Code Excessive cerumen in right ear canal Acute H61.21 Excessive cerumen in left ear canal Acute H61.22 Cerumen impaction Acute H61.20 Bladder cancer Acute C67.9 Bilateral hearing loss due to cerumen impaction Acute H61.23 Wears hearing aid in both ears Acute Z97.4 Cortical cataract of left eye Resolved H26.9 Nuclear age-related cataract, left eye Resolved H25.12 Cortical cataract of right eye Resolved H26.9 Nuclear age-related cataract, right eye Resolved H25.11 Excessive cerumen in ear canal Acute 12/16/15 H61.20 Sensorineural hearing loss, asymmetrical Acute 01/22/14 H90.5 Sensorineural hearing loss Acute 10/08/15 H90.5 Sensorineural hearing loss, bilateral Acute 12/16/15 H90.3 Abnormal auditory perception Acute H93.299 Medical History Medical History Bladder mass Obstructive sleep apnea Surgical History Surgical History H/O transurethral resection of bladder tumor (TURBT) Cataract Tobacco Smoking/Tobacco Use Status: Current-Occasional Tobacco Type: cigarettes and pipe Passive smoking exposure: No Alcohol Alcohol Intake: never Substance Use Substance use: Never Substance use type: does not use Vital Signs and Lab Results Vital Signs Comment Vital Signs Comment:: Temp Pulse Resp BP Pulse Ox 36.3 C L 56 L 16 116/70 97 09/10/25 07:29 09/10/25 07:29 09/10/25 07:29 09/10/25 07:29 09/10/25 07:29 Anesthesia Assessment and Plan Anesthesia History Personal History: No History of Anesthesia Complications Family History: No Family History of Anesthesia Complications Exercise Tolerance Exercise Tolerance: Metabolic Equivalents>4 Pertinent Negatives Pertinent Negatives: No Symptoms of GERD, No Major Cardiovascular Symptoms or Complaints and No Major Pulmonary Symptoms or Complaints Cardiac & Pulmonary Exam Cardiac Exam: Normal S1/S2 Heart Sounds Pulmonary Exam: Clear Bilateral Breath Sounds Implantable Cardiac Device Does patient have a Pacemaker or an ICD?: No Airway Exam Known Difficult Airway: No Mallampati Class: 2 Mouth Opening: Normal (> 3cm) Thyromental Distance: Greater than 3 cm Neck Range of Motion: Full ROM Neck Circumference: Normal Teeth Condition: Removable Dentures/Plates Upper ASA Classification ASA Score: ASA 2 Emergency Case?: No NPO Status NPO Status: NPO Clears >2 hours, Solids >8 hours Anesthesia Plan Resuscitation Status: Full Code Anesthesia Technique: General Anesthesia Airway Planned: Natural Airway Monitors Used: Standard Monitors
--- NOTE | 2025-09-10 08:17 | W.PM.HP.N ---
Date of service: 09/10/25 Time of Service: 08:18 Assessment and Plan Assessment and plan (1) Bladder cancer: Status: Acute Assessment and plan: We will plan to biopsy/resect his visible tumor and instill intravesical chemotherapy into his bladder History of Present Illness History of Present Illness Chief Complaint: Bladder tumor Narrative: This is an 85-year-old gentleman who has a history of urothelial cell carcinoma of the bladder. When he was initially diagnosed, we identified high-grade tumor that involve the lamina propria. We were unable to obtain BCG, so he underwent an induction series of gemcitabine. On his recent surveillance cystoscopy, we identified a small tumor recurrence. His cytology did not show high grade urothelial cells. He has no gross hematuria. He does have urinary frequency and nocturia. Review of Systems Narrative: No fevers or chills Decreased hearing acuity. No dysphasia No diabetes or thyroid dysfunction No shortness of breath, cough or hemoptysis No chest pain or palpitations No nausea, vomiting, hepatitis, ulcers, jaundice No seizures, strokes or peripheral neuropathy No bleeding disorders or anemia No gout PFSH All Active Problems Excessive cerumen in right ear canal (Acute) Excessive cerumen in left ear canal (Acute) Cerumen impaction (Acute) Bladder cancer (Acute) Bilateral hearing loss due to cerumen impaction (Acute) Wears hearing aid in both ears (Acute) Excessive cerumen in ear canal (Acute 12/16/15) Sensorineural hearing loss, asymmetrical (Acute 01/22/14) Sensorineural hearing loss (Acute 10/08/15) Sensorineural hearing loss, bilateral (Acute 12/16/15) Abnormal auditory perception (Acute) Medical History Bladder mass Obstructive sleep apnea Surgical History H/O transurethral resection of bladder tumor (TURBT) Cataract Social History Smoking/Tobacco Use Status: Current-Occasional Tobacco Type: cigarettes and pipe Smoking risk assessment performed?: Yes Alcohol Intake: never Drug use: Never Substance use type: does not use Housing: house Additional Social history: [facility] Meds Allergies and Home Medications Allergies Allergy/AdvReac Type Severity Reaction Status Date / Time No Known Allergies Allergy Verified 09/10/25 07:44 Home Medications Medication Instructions Recorded Confirmed Type calcium 600 mg (as 1 tab PO DAILY 01/28/23 09/10/25 History carbonate)-vitamin D3 5 mcg (200 unit) tablet multivitamin 1 tab PO DAILY 01/28/23 09/10/25 History tamsulosin 0.4 mg capsule 0.4 mg PO DAILY #90 caps 02/08/25 09/10/25 Rx meclizine 12.5 mg tablet 12.5 mg PO DIRECTED PRN Have 09/06/25 09/10/25 History vertigo on occassion ropinirole 0.5 mg tablet 0.5 mg PO DAILY Restless Legs 09/06/25 09/10/25 History Exam Const General: cooperative Neck Neck: supple Resp Effort & Inspection: normal respiratory effort Auscultation: clear to auscultation bilaterally Cardio Rate: regular rate Rhythm: regular rhythm GI Palpation: soft and no masses Neuro General: patient alert, patient awake and patient oriented x3 Results Last Vital Signs Temp 36.3 C L 09/10/25 07:29 Pulse 56 L 09/10/25 07:29 Resp 16 09/10/25 07:29 BP 116/70 09/10/25 07:29 Pulse Ox 97 09/10/25 07:29 Time Spent Time spent with Patient: <40 minutes Time was spent: other
[2025-09-10] MEDS: ceFAZolin 2 GM/50 ML BAG IVPB (09:00)
[2025-09-10] MEDS: Lidocaine 2% Jelly 11 ML SYR (09:18)
[2025-09-10] MEDS: GEMCITABINE HCL 2 GM, Normal Saline - Diluent 50 ML BLADIN (09:18)
--- NOTE | 2025-09-10 09:25 | BLADDER_PTH ---
PATIENT: Pedrito Jaime LOC: [facility] U#:[id number] AGE/SX: 85/M ROOM: RE09/10/[address]: Flakito Vickers MD : 1940 BED: DIS: 09/10/2025 SPEC #: [id number] RECD: 09/10/25 12:35 STATUS: JACE RE #: [id number] VAISHNAVI: 09/10/25 09:[address]: Flakito Vickers DEPT: Surgical Specimen RECD BY: Soni Donald ENTERED: 09/10/25 12:37 SP TYPE: Bladder OTHR DR: Bony Marquez Tissues: 1 - BLADDER BIOPSY Procedures: GROSS AND MICRO LEVEL 4 Comments: [id number]
--- NOTE | 2025-09-10 09:49 | W.PM.DSUDISC ---
Date of service: 09/10/25 Discharge Plan Disposition Patient Disposition: Home Condition: Stable Discharge Details Reason For Visit: bladder tumor Attending Provider: Flakito Vickers Primary Care Provider: Bony Marquez Home Meds and New Rx's Prescriptions: No Action tamsulosin 0.4 mg capsule 0.4 mg PO DAILY Qty: 90 3RF multivitamin Tablet 1 tab PO DAILY calcium carbonate-vitamin D3 [Calcium + D] 600 mg-5 mcg (200 unit) Tablet 1 tab PO DAILY ropinirole 0.5 mg tablet 0.5 mg PO DAILY Patient Comments: Also have some shakiness meclizine 12.5 mg tablet 12.5 mg PO DIRECTED PRN (Reason: Have vertigo on occassion) Discharge Instructions Additional Instructions: Leave catheter clamped with Gemcitabine in bladder for 1 to 2 hours then unclamp, drain bladder and remove catheter Unclamp catheter, drain bladder and remove rendon sooner prn discomfort Followup 1 to 2 weeks to review pathology and decide on next cystoscopy - this appointment could be done by phone Stand Alone Forms: Portal Information Activity:: Activity as Tolerated Shower/Bathe:: 24 hours Diet:: As Tolerated Discharge Orders Discharge Orders: Discharge Order (Routine); Ordered 09/10/25 Ordered By: Flakito Vickers DS: Diagnosis Discharge Diagnosis (1) Bladder cancer: Status: Acute
--- NOTE | 2025-09-10 09:52 | ROE_ITS ---
Operative Note Operative Note PRE-OP DIAGNOSIS: Bladder cancer POST-OP DIAGNOSIS: same PROCEDURE: cystoscopy, TURBT (less than 2 cm), instill Gemcitabine into bladder SURGEON: Flakito Vickers ANESTHESIA TYPE: Local By Surgeon and General:No Airway Refer to Anesthesia Record ESTIMATED BLOOD LOSS: 5 PATHOLOGY: other (bladder biopsy) COMPLICATIONS: None Patient was transported to: PACU Patient's condition: stable Implants: 16 [place] rendon with 10 cc sterile water in balloon Indications: This is an 85-year-old gentleman who has a history of urothelial cell carcinoma of the bladder. When he was first diagnosed, his tumor involve the lamina propria. He was treated with transurethral resection along with an induction series of intra vesicle gemcitabine. On his most recent surveillance cystoscopy, there did appear to be a papillary lesion on the bladder posteriorly. His urine cytology was unremarkable. He presents now for cystoscopy, fulguration of his tumor and instillation of gemcitabine into the bladder Findings: Bladder heavily trabeculated with mild erythematous mucosa within one of the diverticuli Procedure Description: The patient was given IV antibiotics and brought to the operating room on 09/10/2025. After successful induction of general anesthesia, he was placed in the dorsal lithotomy position. His genitalia was prepped. 2% Xylocaine jelly was instilled into the urethra. A 24 [place] resectoscope sheath was passed through the urethra into the bladder. The urethra and bladder were inspected with the visual obturator and a 30 degree lens. The pendulous, bulbar and membranous urethra appeared normal. The prostatic urethra showed lateral lobe enlargement but no significant median lobe. The bladder neck was entered and the bladder mucosa was inspected. Multiple scars were seen from previous transurethral resection. The bladder was heavily trabeculated with multiple small diverticuli. Within one of the diverticuli, just posterior to his largest TURBT scar, the mucosa was a bit more erythematous. I performed transurethral resection of the area using an [employer] resectoscope and bipolar cautery. I then fulgurated the surrounding mucosa and sent a single piece of resected tissue to the laboratory for chemical analysis. The entire resection site measured less than 2 cm. Once hemostasis was obtained, the scope was removed. A 16 [place] Rendon catheter was passed through the urethra into the bladder. The catheter balloon was inflated with 10 cc of sterile water. The bladder was drained. A solution containing 2 g of gemcitabine mixed and 50 mL of dilute and was then instilled into the bladder. The catheter was clamped leaving the gemcitabine solution in place. The patient tolerated this procedure well with no complications. He was taken to the recovery room in stable condition. We will allow the gemcitabine to remain in his bladder for at least and hour before draining the bladder and removing the catheter. Date of Procedure: 09/10/25
[2025-09-10] MEDS: Phenazopyridine 200 MG TAB PO (10:13)
--- NOTE | 2025-09-10 10:55 | W.ANESPOSTOP ---
Postoperative Evaluation Date, Time and Location Date Performed: 09/10/25 Time Performed: 10:55 Patient Location: Day Surgery Unit Vital Signs Most Recent Imported Vital Signs: Most Recent Vital Signs Temp Pulse Resp BP Pulse Ox 36.4 C L 50 L 16 112/60 94 09/10/25 10:29 09/10/25 10:29 09/10/25 10:29 09/10/25 10:29 09/10/25 10:29 Pain Score Most Recent Pain Score: Most Recent Pain Score Pain Level 0 09/10/25 10:29 Assessment Mental Status: Awake (Alert & Oriented to Patient Baseline) Airway and Respiratory Function: Patent airway with normal (patient baseline) respiratory exam Cardiovascular Function: Hemodynamically Stable Hydration Status: Adequately Hydrated Nausea & Vomiting: No Nausea or Vomiting Pain: Pt. Denies Any Pain Peripheral Nerve Block: Patient did not receive a nerve block
== END 2025-09-10 11:54 | disposition home or self-care (01) ==
PROVIDERS: PCP Family Medicine; Visit Provider Urology
PROC: 0TBB8ZZ Excision of Bladder, Via Natural or Artificial Opening Endoscopic (ICD-10-PCS; CPT 52234; principal; 2025-09-10 09:00)
PROC: (CPT 52234; 2025-09-10 09:00)
DX: C67.9 Malignant neoplasm of bladder, unspecified (principal)
CPT/HCPCS: 52234; 88305; J0690; J1100; J1885; J2405; J2704; J9201

== ENCOUNTER → 2025-09-25 14:44 | Outpatient (BNVA) | payer MEDICARE, SELFPAY | PROVIDERS: PCP Family Medicine; Referring Provider Family Medicine; Visit Provider Urology | DX: C67.9 Malignant neoplasm of bladder, unspecified (principal); R35.0 Frequency of micturition; R39.15 Urgency of urination | CPT/HCPCS: 99214 ==